=== PATIENT | male | born 1990 | race Caucasian/White ===

== ENCOUNTER 2022-06-11 17:00 | Emergency (ER) | payer SELFPAY ==
[~2022-06-11] VITALS: Ht 172.7 cm; Wt 83.9 kg
[2022-06-11 20:06] LABS: CHLORIDE 103 mEq/L (98-107)
[2022-06-11 20:09] LABS: BASOPHILS % 0.5 % (0.0-2.0); EOSINOPHILS % 1.6 % (0.0-5.0); HEMATOCRIT. 45.4 % (42.0-52.0); LYMPHOCYTES % 28.9 % (20.0-50.0); MEAN CORPUSCULAR HEMOGLOBIN 30.7 pg (28.0-32.0); MEAN CORPUSCULAR VOLUME 87.1 fL (80.0-94.0); MEAN PLATELET VOLUME 9.1 fl (7.4-10.4); MONOCYTES % 6.4 % (2.0-8.0); NEUTROPHILS % 62.6 % (40.0-76.0); PLATELET 227 x1000/uL (130-400); RED BLOOD CELL COUNT 5.21 mill/uL (4.7-6.1); RED CELL DISTRIBUTION WIDTH 13.2 % (11.6-14.6)
[2022-06-11] MEDS ORDERED: METH-653 MT (20:54)
[2022-06-11] MEDS ORDERED: IBUP-2029 MT (20:54)
[2022-06-11 21:10] VITALS: BP 118/78
== END 2022-06-11 21:10 | disposition home or self-care (01) ==
LOC: ER 17:00
DX: S39.82XA Other specified injuries of lower back, initial encounter (principal); S30.1XXA Contusion of abdominal wall, initial encounter; S70.311A Abrasion, right thigh, initial encounter; S70.312A Abrasion, left thigh, initial encounter; R42 Dizziness and giddiness; V13.4XXA Pedal cycle driver injured in collision with car, pick-up truck or van in traffic accident, initial encounter; Y93.55 Activity, bike riding; Y92.488 Other paved roadways as the place of occurrence of the external cause
CPT/HCPCS: 36415; 71045; 74176; 80053; 85025; 99285